=== PATIENT | female | born 1935 | race Caucasian/White ===

== ENCOUNTER 2018-03-08 14:55 | Inpatient (IN) | payer MEDICARE, BC ==
[~2018-03-08] VITALS: Ht 157.5 cm; Wt 63.5 kg
--- NOTE | 2018-03-08 15:16 | NUR ---
Dr Martinez at the bedside for MSE.
[2018-03-08 15:53] LABS: BASOPHILS # (AUTO) 0.1 K/uL (0.0-8.0); BASOPHILS % (AUTO) 0.9 % (0.0-2.0); EOSINOPHILS # (AUTO) 0.1 K/uL (0.0-0.7); EOSINOPHILS % (AUTO) 0.7 % (0.0-7.0); HEMATOCRIT 36.2 % (31.2-41.9); HEMOGLOBIN 11.6 g/dL (10.9-14.3); LYMPHOCYTES # (AUTO) 2.8 K/uL (20.0-40.0); LYMPHOCYTES % (AUTO) 22.5 % (20.5-51.5); MEAN CORPUSCULAR HEMOGLOBIN 22.3 uug (24.7-32.8); MEAN CORPUSCULAR HGB CONC 32 g/dL (32.3-35.6); MEAN CORPUSCULAR VOLUME 69.7 fL (75.5-95.3); MONOCYTES # (AUTO) 1.3 K/uL (2.0-10.0); MONOCYTES % (AUTO) 10.1 % (0.0-11.0); NEUTROPHILS # (AUTO) 8.3 K/uL (1.8-8.9); NEUTROPHILS % (AUTO) 65.8 % (38.5-71.5); PLATELET COUNT (AUTO) 451 K/uL (179-408); RED BLOOD CELL COUNT(AUTO) 5.19 MIL/uL (3.63-4.92); WHITE BLOOD COUNT (AUTO) 12.6 K/uL (3.8-11.8)
[2018-03-08 15:56] LABS: CARBON DIOXIDE 32 mmol/L (21-32); CHLORIDE 101 mmol/L (98-107); CREATININE 1.1 mg/dL (0.6-1.3); GLUCOSE 112 mg/dL (74-106); POTASSIUM 3.7 mmol/L (3.5-5.1); UREA NITROGEN, BLOOD 17 mg/dL (7-18)
[2018-03-08 16:02] LABS: ALANINE AMINOTRANSFERASE 27 U/L (14-59); ALKALINE PHOSPHATASE 133 U/L (50-136); ASPARTATE AMINOTRANSFERASE 43 U/L (15-37); BILIRUBIN,TOTAL 0.3 mg/dL (0.2-1.0); CREATINE KINASE, TOTAL 45 U/L (26-192); TOTAL PROTEIN, SERUM 7.2 g/dL (6.4-8.2)
[2018-03-08 16:15] LABS: *OCCULT BLOOD STOOL POSITIVE (NEGATIVE)
--- NOTE | 2018-03-08 16:50 | NUR ---
Patient is resting comfortably in bed with eyes closed, NAD noted.Pt's son at the bedside.
[2018-03-08] MEDS ORDERED: INDA2.5T5 PO (17:15)
[2018-03-08] MEDS ORDERED: FERR325T28 PO (17:15)
[2018-03-08] MEDS ORDERED: LORA1TAB PO (17:15)
[2018-03-08] MEDS ORDERED: NIFE30TA91 PO (17:15)
[2018-03-08] MEDS ORDERED: METO-358 PO (17:15)
--- NOTE | 2018-03-08 17:31 | NUR ---
Paged Dr Tello(GI consult) per MD request, awaiting call back.
--- NOTE | 2018-03-08 17:38 | NUR ---
Dr Humphrey spoke to MARY Broussard.
--- NOTE | 2018-03-08 17:41 | NUR ---
Belonging list completed and placed in the chart, not candidate for MRSA.
[2018-03-08 17:55] LABS: *BILIRUBIN,URIN NEGATIVE (NEGATIVE); *BLOOD, URINE NEGATIVE (NEGATIVE); *COLOR,URINE YELLOW (YELLOW); *KETONES,URINE NEGATIVE (NEGATIVE); *PROTEIN,URINE NEGATIVE (NEGATIVE); *UROBILINOGEN,URINE 0.2 E.U./dl (NORMAL); LEUKOCYTE ESTERASE ,URINE 1+ (NEGATIVE); NITRITE, URINE NEGATIVE (NEGATIVE); UGLUCOSE NEGATIVE (NEGATIVE)
[2018-03-08 18:03] LABS: *CLARITY,URINE HAZY (CLEAR)
[2018-03-08 18:04] LABS: BACTERIA,URINE FEW /HPF (NONE SEEN); MUCUS,URINE MANY /LPF (0-FEW); RBC,URINE 0-3 /HPF (0-3); SQUAMOUS EPITHELIAL CELL,UR MODERATE /HPF (NONE SEEN)
[2018-03-08 18:35] VITALS: BP 131/50
[2018-03-08 19:35] VITALS: BP 116/56
--- NOTE | 2018-03-08 19:45 | NUR ---
RECEIVED PATIENT AWAKE IN BED WITH SON AT BEDSIDE. PATIENT IS A/O X4. DENIES PAIN OR DISCOMFORT. NO RESP. DISTRESS NOTED. ORIENTED PATIENT TO ROOM AND CALL LIGHT. ON TELE SR. CALL LIGHT IN REACH. ALL NEEDS ATTENDED. WILL CONTINUE TO MONITOR AND ASSESS.
--- NOTE | 2018-03-08 20:15 | NUR ---
RECEIVED ORDER IN PATIENTS CHART REGARDING EGD/COLONOSCOPY IN AM. PATIENT STATED, SHE WAS TOLD IM ER THAT THE PREP WOULD START IN AM AND PATIENT DOES NOT WANT TO START PREP TONIGHT. NOTIFIED DR. WREN AND CALLED OUT TO [facility] WHO ORDERED PREP, TO INFORM HER THAT PATIENT DOES NOT WANT EGD/COLONOSCOPY PREP TO START TONIGHT. 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 PATIENT WILL START PREP IM AM, CLEAR LIQUIDS JESSICA ALL DAY AND THEN NPO AFTER MIGDNIGHT ON 03/10/18. EGD/COLONOSCOPY PLANNED FOR WEDNESDAY, NO TIME SCHEDULED AT THIS TIME. ALL NEEDS ATTENDED. WILL CONTINUE TO MONITOR.
[2018-03-08] MEDS ORDERED: MAGNESIUM CITRATE 296 ML BOTTLE PO ONE (20:30)
[2018-03-08] MEDS ORDERED: GOLYTELY 4000 ML BOTTLE PO ONE (20:30)
[2018-03-08] MEDS ORDERED: MORPHINE SULFATE 2 MG/1 ML DISP.SYRIN IV PRN (20:45)
[2018-03-08] MEDS ORDERED: ENALAPRILAT DIHYDRATE INJ 2.5 MG in IV NORMAL SALINE 50 ML IV PRN (20:45)
[2018-03-08] MEDS ORDERED: ACETAMINOPHEN 650 MG SUPP.RECT RC PRN (20:45)
[2018-03-08] MEDS ORDERED: LORAZEPAM 1 MG TABLET PO PRN (20:45)
[2018-03-08] MEDS ORDERED: ACETAMINOPHEN 325 MG TABLET PO PRN (20:45)
[2018-03-08] MEDS ORDERED: DOCUSATE SODIUM 250 MG CAPSULE PO SCH (21:00)
[2018-03-08] MEDS: METOPROLOL TARTRATE 25 MG TABLET PO SCH (22:04)
[2018-03-08] MEDS: CEFTRIAXONE 1 G in IV DEXTROSE 5% 50 ML IV SCH (22:10)
[2018-03-08] MEDS: DOCUSATE SODIUM 100 MG CAPSULE PO SCH (22:51)
[2018-03-09] VITALS: BP 129/46
[2018-03-09 04:00] VITALS: BP 132/45
[2018-03-09] MEDS ORDERED: FLEET ENEMA 133 ML BOTTLE RC ONE (05:00)
--- NOTE | 2018-03-09 05:57 | NUR ---
PATIENT ASLEEP IN BED. ON TELE SB 50'S. SLEPT WELL. NO S/S OF PAIN OR DISCOMFORT. NO RESP. DISTRESS NOTED. CALL LIGHT IN REACH. ALL NEEDS ATTENDED. WILL CONTINUE TO MONITOR.
[2018-03-09] MEDS: PANTOPRAZOLE SODIUM 40 MG TABLET.DR PO SCH (06:19)
[2018-03-09 06:34] LABS: BASOPHILS # (AUTO) 0.1 K/uL (0.0-8.0); EOSINOPHILS # (AUTO) 0.3 K/uL (0.0-0.7); EOSINOPHILS % (AUTO) 2.7 % (0.0-7.0); HEMOGLOBIN 10.5 g/dL (10.9-14.3); LYMPHOCYTES # (AUTO) 3.3 K/uL (20.0-40.0); LYMPHOCYTES % (AUTO) 28.1 % (20.5-51.5); MEAN CORPUSCULAR HEMOGLOBIN 22.2 uug (24.7-32.8); MEAN CORPUSCULAR HGB CONC 32 g/dL (32.3-35.6); MEAN CORPUSCULAR VOLUME 69.8 fL (75.5-95.3); MONOCYTES # (AUTO) 1.7 K/uL (2.0-10.0); NEUTROPHILS # (AUTO) 6.4 K/uL (1.8-8.9); NEUTROPHILS % (AUTO) 54.2 % (38.5-71.5); PLATELET COUNT (AUTO) 422 K/uL (179-408); RED BLOOD CELL COUNT(AUTO) 4.73 MIL/uL (3.63-4.92); WHITE BLOOD COUNT (AUTO) 11.8 K/uL (3.8-11.8)
[2018-03-09 07:01] LABS: THYROID STIMULATING HORMONE 2.353 mIU/mL (0.358-3.740)
[2018-03-09 07:05] LABS: ALANINE AMINOTRANSFERASE 23 U/L (14-59); ALKALINE PHOSPHATASE 113 U/L (50-136); ASPARTATE AMINOTRANSFERASE 44 U/L (15-37); BILIRUBIN,TOTAL 0.2 mg/dL (0.2-1.0); CARBON DIOXIDE 28 mmol/L (21-32); CHLORIDE 102 mmol/L (98-107); CHOLESTEROL 355 mg/dL (<200); CREATININE 0.8 mg/dL (0.6-1.3); GLUCOSE 110 mg/dL (74-106); HDL CHOLESTEROL 29 mg/dL (40-60); MAGNESIUM 2.1 mg/dL (1.8-2.4); PHOSPHOROUS 4.7 mg/dL (2.5-4.9); POTASSIUM 2.9 mmol/L (3.5-5.1); TOTAL PROTEIN, SERUM 6.4 g/dL (6.4-8.2); TRIGLYCERIDES 219 MG/DL (30-150); UREA NITROGEN, BLOOD 17 mg/dL (7-18)
[2018-03-09 07:17] LABS: IRON, SERUM 23 ug/dL (50-175)
[2018-03-09 07:57] LABS: EOSINOPHILS % (MANUAL) 3 % (0-8); LYMPHOCYTES % (MANUAL) 29 % (20-40); MONOCYTES % (MANUAL) 12 % (2-10); NEUTROPHILS % (MANUAL) 56 % (42-75)
[2018-03-09] MEDS ORDERED: GOLYTELY 4000 ML BOTTLE PO ONE (08:00)
--- NOTE | 2018-03-09 08:00 | NUR ---
AWAKE ALERT AND ORIENTED X3 NO SS OF PAIN OR DISTRESS. SB 52 ON MONITOR DENIES CP CONTINUE TO OBSERVE
[2018-03-09] MEDS ORDERED: POTASSIUM CHLORIDE 20 MEQ TAB.PRT.SR PO ONE (08:30)
[2018-03-09] MEDS: METOPROLOL TARTRATE 25 MG TABLET PO SCH (08:34)
--- NOTE | 2018-03-09 11:30 | NUR ---
SEEN BY DR BROWN MADE AWARE OF PT POORLY TOLERATING GOLYTELY NEW ORDERS GIVEN
[2018-03-09 11:36] VITALS: BP 123/47
[2018-03-09] MEDS ORDERED: SWABABLE VALVE TRANSFER SET EA MC ONE (11:52)
[2018-03-09] MEDS ORDERED: NORMAL SALINE FLUSH 10 ML DISP.SYRIN ONE (11:52)
[2018-03-09] MEDS ORDERED: IOHEXOL 300MG/ML 100 ML INFUS..BTL ONE (11:52)
[2018-03-09] MEDS ORDERED: IV NORMAL SALINE 100 ML ONE (11:52)
[2018-03-09] MEDS ORDERED: MAGNESIUM CITRATE 296 ML BOTTLE PO ONE ×2 (12:00→21:00)
[2018-03-09] MEDS ORDERED: MIRALAX 17 GM POWD.PACK PO ONE ×2 (12:00→16:00)
--- NOTE | 2018-03-09 12:30 | NUR ---
REFUSING CT ABD DR MCNEIL NOTIFIED AND SPOKE WITH PATIENT. PATIENT AGREED CT ABD POST EGD/COLONOSCOPY IN AM
--- NOTE | 2018-03-09 13:25 | NUR ---
CONTINUE BOWEL PREP FOR EGD AND COLONOSCOPY IN AM AT 0700, TOLERATING FAIRLY
[2018-03-09 15:14] VITALS: BP 149/49
--- NOTE | 2018-03-09 17:45 | NUR ---
FAIRLY TOLERATING BOWEL PREP STILL NOT CLEAR ENOUGH. NPO POST MN ADVISED
--- NOTE | 2018-03-09 19:20 | NUR ---
RECEIVED PT AWAKE, ALERT, ORIENTEDX3 . PT IV INTACT AND PATENT.PT ON BOWEL PREPARATION FOR PROCEDURE TOMORROW FOR EGD AND COLONOSCOPY. PT AWARE . SHE SAID SHE HAS STOMACH PAIN BECAUSE OF THE BOWEL PREPARATION. SHE SAID SHE DOESN'T WANT TO CONTINUE THE BOWEL PREP. SHE NEEDS ENCOURAGEMENT TO DRINK HER BOWEL PREP MEDICATION. BED ALARM ON, CALL LIGHT WITHIN REACH, AND SIDE [id number]. SAFETY AND COMFORT PROVIDED. WILL CONTINUE TO MONITOR.
[2018-03-09 20:00] VITALS: BP 146/49
[2018-03-09] MEDS: DOCUSATE SODIUM 100 MG CAPSULE PO SCH (20:39)
[2018-03-09] MEDS: CEFTRIAXONE 1 G in IV DEXTROSE 5% 50 ML IV SCH (20:39)
--- NOTE | 2018-03-09 21:00 | NUR ---
NOTIFY DR. MCNEIL THAT PT IS REFUSING TO TAKE MORE BOWEL PREPARATION AT 2020. DR ADVISED TO TELL THE GI DOCTOR. THE PT'S DAUGHTER CALLED AND TOLD ME TO LET HER MOTHER KEEP DRINKING THE BOWEL PREP. PT HESITANT TO CONTINUE TO TAKE THE BOWEL PREPARATION BUT SHE IS DRINKING IT.
--- NOTE | 2018-03-09 22:00 | NUR ---
GRANDSON AT BEDSIDE AND ALSO ENCOURAGING HER GRANDMOTHER TO FINISH TAKING HER BOWEL PREPARATION. WILL CONTINUE TO MONITOR.
[2018-03-10] MEDS: POTASSIUM CHLORIDE 40 MEQ in IV NS 1000 ML 1,000 ML IV PRN ×2 (00:11→23:56)
[2018-03-10 04:46] VITALS: BP 133/66
[2018-03-10] MEDS ORDERED: FLEET ENEMA 133 ML BOTTLE RC PRN (05:00)
[2018-03-10] MEDS ORDERED: FLEET ENEMA 133 ML BOTTLE RC ONE (06:00)
[2018-03-10] MEDS: PANTOPRAZOLE SODIUM 40 MG TABLET.DR PO SCH (06:04)
--- NOTE | 2018-03-10 06:24 | NUR ---
PT SLEPT INTERMITTENTLY. IV INTACT AND PATENT.BOWEL PREPRARATION DONE. PT TOLERATED IT WELL. PREOP CHECKLIST DONE. SAFETY AND COMFORT PROVIDED. ALL NEEDS ARE MET.WILL ENDORSE TO DAYSHIFT NURSE.
--- NOTE | 2018-03-10 06:45 | NUR ---
PT WAS TAKEN DOWN FOR THE PROCEDURE.
--- NOTE | 2018-03-10 07:07 | NUR ---
patient in gi for egd and colonoscopy
[2018-03-10] MEDS ORDERED: SUCCINYLCHOLINE CHLORIDE 200 MG/10 ML VIAL ONE (07:15)
[2018-03-10 07:56] LABS: BASOPHILS # (AUTO) 0.1 K/uL (0.0-8.0); BASOPHILS % (AUTO) 0.7 % (0.0-2.0); EOSINOPHILS # (AUTO) 0.1 K/uL (0.0-0.7); EOSINOPHILS % (AUTO) 0.7 % (0.0-7.0); HEMATOCRIT 33.3 % (31.2-41.9); HEMOGLOBIN 10.6 g/dL (10.9-14.3); LYMPHOCYTES # (AUTO) 1.9 K/uL (20.0-40.0); LYMPHOCYTES % (AUTO) 21.4 % (20.5-51.5); MEAN CORPUSCULAR HEMOGLOBIN 22.5 uug (24.7-32.8); MEAN CORPUSCULAR HGB CONC 32 g/dL (32.3-35.6); MEAN CORPUSCULAR VOLUME 70.4 fL (75.5-95.3); MONOCYTES # (AUTO) 1.2 K/uL (2.0-10.0); MONOCYTES % (AUTO) 13.2 % (0.0-11.0); NEUTROPHILS # (AUTO) 5.6 K/uL (1.8-8.9); PLATELET COUNT (AUTO) 379 K/uL (179-408); RED BLOOD CELL COUNT(AUTO) 4.73 MIL/uL (3.63-4.92)
[2018-03-10 08:15] LABS: WHITE BLOOD COUNT (AUTO) 8.7 K/uL (3.8-11.8)
[2018-03-10] MEDS ORDERED: SWABABLE VALVE TRANSFER SET EA MC ONE (08:39)
[2018-03-10] MEDS ORDERED: IOHEXOL 300MG/ML 100 ML INFUS..BTL ONE (08:40)
[2018-03-10] MEDS ORDERED: IV NORMAL SALINE 100 ML ONE (08:40)
[2018-03-10 09:27] LABS: CARBON DIOXIDE 29 mmol/L (21-32); CHLORIDE 107 mmol/L (98-107); CREATININE 0.8 mg/dL (0.6-1.3); GLUCOSE 132 mg/dL (74-106); MAGNESIUM 2.7 mg/dL (1.8-2.4); PHOSPHOROUS 3.9 mg/dL (2.5-4.9); POTASSIUM 3.4 mmol/L (3.5-5.1); UREA NITROGEN, BLOOD 18 mg/dL (7-18)
--- NOTE | 2018-03-10 09:30 | NUR ---
BACK FROM GI LAB POST EGD/COLONOSCOPY AND ALSO CT ABDOMEN/PELVIS. AWAKE ALERT AND NO SS OF PAIN OR DISTRESS. CONTINUE CLEAR LIQUID TILL FURTHER ORDERS
[2018-03-10 10:29] LABS: BAND % (MANUAL) 1 % (0-10); BASOPHILS % (MANUAL) 1 % (0-2); EOSINOPHILS % (MANUAL) 1 % (0-8); LYMPHOCYTES % (MANUAL) 23 % (20-40); METAMYELOCYTES % 1 % (0-1); MONOCYTES % (MANUAL) 10 % (2-10); NEUTROPHILS % (MANUAL) 63 % (42-75)
[2018-03-10 11:55] VITALS: BP 136/58
[2018-03-10] MEDS ORDERED: POTASSIUM CHLORIDE 20 MEQ TAB.PRT.SR PO ONE (12:15)
--- NOTE | 2018-03-10 15:27 | NUR ---
DC PLANNING INITIATED SEE SAMPLING EXPERT AND AND DR MCNEIL
[2018-03-10 16:28] VITALS: BP 144/60
[2018-03-10] MEDS: SOD FERRIC GLUC COMPLX/SUCROSE 125 MG in IV NORMAL SALINE 100 ML IV SCH (16:38)
--- NOTE | 2018-03-10 20:00 | NUR ---
NSG: Received patient laying in bed. family at bed side. no c/o pain or discomfort.
[2018-03-10 20:24] VITALS: BP 147/91
[2018-03-10] MEDS: DOCUSATE SODIUM 100 MG CAPSULE PO SCH (20:32)
[2018-03-10] MEDS: CEFTRIAXONE 1 G in IV DEXTROSE 5% 50 ML IV SCH (20:42)
--- NOTE | 2018-03-10 21:00 | NUR ---
nsg: patient reported small amount blood in urine.
--- NOTE | 2018-03-11 04:56 | NUR ---
NSG: PATIENT REFUSED IVF,STATED I FEEL PAIN WNEN IVF IS RUNNING. CHARGE NURSE AWARE. CONTINUE MONITORING FOR SAFETY.
[2018-03-11 05:04] VITALS: BP 152/50
--- NOTE | 2018-03-11 05:52 | NUR ---
NSG: PATIENT REFUSED AM LAB.
[2018-03-11] MEDS: PANTOPRAZOLE SODIUM 40 MG TABLET.DR PO SCH (06:08)
--- NOTE | 2018-03-11 08:00 | NUR ---
AWAKE ALERT WITH NO SIGNS OF PAIN OR DISTRESS. NOTED SLIGHT BRIGHT RED FROM STOOL WILL OBSERVE
[2018-03-11 11:34] VITALS: BP 155/66
[2018-03-11 11:47] LABS: BASOPHILS # (AUTO) 0.1 K/uL (0.0-8.0); BASOPHILS % (AUTO) 0.8 % (0.0-2.0); EOSINOPHILS # (AUTO) 0.3 K/uL (0.0-0.7); EOSINOPHILS % (AUTO) 2.5 % (0.0-7.0); HEMATOCRIT 33.9 % (31.2-41.9); HEMOGLOBIN 11.1 g/dL (10.9-14.3); LYMPHOCYTES # (AUTO) 2.4 K/uL (20.0-40.0); LYMPHOCYTES % (AUTO) 22.9 % (20.5-51.5); MEAN CORPUSCULAR HEMOGLOBIN 22.8 uug (24.7-32.8); MEAN CORPUSCULAR HGB CONC 33 g/dL (32.3-35.6); MEAN CORPUSCULAR VOLUME 69.8 fL (75.5-95.3); MONOCYTES # (AUTO) 1.1 K/uL (2.0-10.0); MONOCYTES % (AUTO) 10.3 % (0.0-11.0); NEUTROPHILS # (AUTO) 6.7 K/uL (1.8-8.9); NEUTROPHILS % (AUTO) 63.5 % (38.5-71.5); PLATELET COUNT (AUTO) 382 K/uL (179-408); RED BLOOD CELL COUNT(AUTO) 4.86 MIL/uL (3.63-4.92); WHITE BLOOD COUNT (AUTO) 10.5 K/uL (3.8-11.8)
--- NOTE | 2018-03-11 12:00 | NUR ---
CONTINUE CURRENT TX PLAN. FAMILY AT BEDSIDE ALL SUPPORTIVE WITH CARE
[2018-03-11] MEDS ORDERED: POTASSIUM CHLORIDE 20 MEQ TAB.PRT.SR PO ONE (12:30)
[2018-03-11 13:12] LABS: BAND % (MANUAL) 2 % (0-10); BASOPHILS % (MANUAL) 1 % (0-2); EOSINOPHILS % (MANUAL) 5 % (0-8); LYMPHOCYTES % (MANUAL) 19 % (20-40); MONOCYTES % (MANUAL) 7 % (2-10); NEUTROPHILS % (MANUAL) 66 % (42-75)
[2018-03-11] MEDS ORDERED: SOD FERRIC GLUC COMPLX/SUCROSE 125 MG in IV NORMAL SALINE 100 ML IV SCH (14:00)
[2018-03-11] MEDS: SOD FERRIC GLUC COMPLX/SUCROSE 125 MG in IV NORMAL SALINE 100 ML IV SCH (14:41)
--- NOTE | 2018-03-11 15:31 | NUR ---
SEEN BY DR MCNEIL DISCUSSED PLAN OF CARE SEE NOTES
[2018-03-11 16:00] VITALS: BP 157/53
[2018-03-11] MEDS ORDERED: LORAZEPAM 0.5 MG TABLET PO PRN (17:15)
--- NOTE | 2018-03-11 19:30 | NUR ---
Received patient sitting comfortably in chair. Family at bedside. No acute distress noted. Patient is A/O x 4. Ambulatory with minimal assistance. No skin issues. Safety initiated. Call light within reach. Room is kept clutter free. Bed is in low and locked position. Will continue to monitor.
[2018-03-11 20:26] VITALS: BP 162/62
[2018-03-11] MEDS: DOCUSATE SODIUM 100 MG CAPSULE PO SCH (21:00)
[2018-03-11] MEDS: CEFTRIAXONE 1 G in IV DEXTROSE 5% 50 ML IV SCH (22:00)
[2018-03-11] MEDS ORDERED: hydrALAZINE HCL 25 MG TABLET PO PRN (23:00)
[2018-03-12 05:35] VITALS: BP 155/47
[2018-03-12] MEDS: PANTOPRAZOLE SODIUM 40 MG TABLET.DR PO SCH (06:00)
--- NOTE | 2018-03-12 06:23 | NUR ---
No changes t/o shift. Patient slept t/o shift. No acute distress noted. No c/o pain or sob. Safety and comfort measures maintained t/o shift. B/P elevated, PRN medication given, will re-check BP. All meds given without reaction. All needs met.
[2018-03-12] MEDS: METOPROLOL TARTRATE 25 MG TABLET PO SCH ×2 (08:08→21:09)
--- NOTE | 2018-03-12 10:00 | NUR ---
UP AMBULATORY TO AND FROM THE BATHROOM DENIES PAIN OR DISCOMFORTS AT THIS TIME NOT IN DISTRESS.
[2018-03-12 11:47] VITALS: BP 136/54
[2018-03-12] MEDS: SOD FERRIC GLUC COMPLX/SUCROSE 125 MG in IV NORMAL SALINE 100 ML IV SCH (14:09)
[2018-03-12 16:15] VITALS: BP 130/0
--- NOTE | 2018-03-12 17:09 | NUR ---
PATIENT COMPLAINED OF VAGINAL ITCHING DR MCNEIL NOTIFIED WITH NEW ORDERS AND NOTED.
[2018-03-12] MEDS: FLUCONAZOLE 100 MG TABLET PO SCH (17:27)
--- NOTE | 2018-03-12 17:33 | NUR ---
PATIENT STATED AND EDUCATED ON DIFLUCAN ORDERED AND PERICARE GIVEN AND WILL CONTINUE TO OBSERVE.
[2018-03-12 20:07] VITALS: BP 155/68
[2018-03-12] MEDS: DOCUSATE SODIUM 100 MG CAPSULE PO SCH (21:00)
[2018-03-12] MEDS: CEFTRIAXONE 1 G in IV DEXTROSE 5% 50 ML IV SCH (21:08)
[2018-03-13 04:00] VITALS: BP 132/43
--- NOTE | 2018-03-13 05:41 | NUR ---
No changes t/o shift. Patient slept t/o shift. No acute distress noted. No c/o pain or sob. Safety and comfort measures maintained t/o shift. Vitals signs stable. Urinating ok. All meds given without reaction. All needs met.
[2018-03-13] MEDS: PANTOPRAZOLE SODIUM 40 MG TABLET.DR PO SCH (06:08)
[2018-03-13] MEDS: METOPROLOL TARTRATE 25 MG TABLET PO SCH (08:10)
[2018-03-13] MEDS: FLUCONAZOLE 100 MG TABLET PO SCH (08:10)
[2018-03-13 11:15] VITALS: BP 132/47
--- NOTE | 2018-03-13 11:40 | NUR ---
ORDER TO DISCHARGE PATIENT HOME TODAY RECEIVED AND CARRIED OUT.PATIENT STATED THAT HER DAUGHTER CHAZ WILL BE HERE TO PICK HER UP.
[2018-03-13] MEDS ORDERED: LORA0.5T48 PO (12:08)
[2018-03-13] MEDS ORDERED: HYDR-3326 PO (12:08)
[2018-03-13] MEDS ORDERED: PANT40TA2 PO (12:08)
[2018-03-13] MEDS ORDERED: DOCU-141 PO (12:08)
[2018-03-13] MEDS ORDERED: METO-357 PO (12:08)
[2018-03-13] MEDS ORDERED: POLY17PO4 PO (12:08)
--- NOTE | 2018-03-13 14:30 | NUR ---
PATIENT DISCHARGED PICKED UP BY HER DAUGHTER CHAZ IN SATISFACTORY CONDITION WITH DISCHARGE INSTRUCTIONS,PRESCRIPTIONS AND ALL HER PERSONAL BELONGINGS FROM THE [facility] PATIENT ALSO RECEIVED CD OF ALL HER TESTS HOME HEALTH INFO ETC AND TO FOLLOW UP WITH HER PRIMARY DOCTOR.PATIENT STATED DID NOT HAVE A PRIVATE DOCTOR BUT WILL FIND ONE WHILE IN [place] .ALSO NEEDED TO FOLLOW UP WITH DR METZGER PATIENT AND HE DAUGHTER CHAZ EXPRESSED UNDERSTANDING.
== END 2018-03-13 14:30 | disposition home health service (06) | DRG 375 ==
LOC: ER 14:58 → TELE 18:13 → MED 03-09 13:27
PROVIDERS: ADMIT Psychiatry & Neurology Psychiatry; ATTEND Internal Medicine
PROC: 0DBH8ZX Excision of Cecum, Via Natural or Artificial Opening Endoscopic, Diagnostic (ICD-10-PCS; 2018-03-10)
PROC: 0DBL8ZX Excision of Transverse Colon, Via Natural or Artificial Opening Endoscopic, Diagnostic (ICD-10-PCS; 2018-03-10)
PROC: 0DB68ZX Excision of Stomach, Via Natural or Artificial Opening Endoscopic, Diagnostic (ICD-10-PCS; principal; 2018-03-10 07:00)
PROC: 0DBK8ZX Excision of Ascending Colon, Via Natural or Artificial Opening Endoscopic, Diagnostic (ICD-10-PCS; 2018-03-10 07:00)
DX: C18.4 Malignant neoplasm of transverse colon (principal); C78.7 Secondary malignant neoplasm of liver and intrahepatic bile duct; I11.9 Hypertensive heart disease without heart failure; D62 Acute posthemorrhagic anemia; N39.0 Urinary tract infection, site not specified; E44.1 Mild protein-calorie malnutrition; J98.11 Atelectasis; G47.00 Insomnia, unspecified; I08.3 Combined rheumatic disorders of mitral, aortic and tricuspid valves; K29.70 Gastritis, unspecified, without bleeding; K57.10 Diverticulosis of small intestine without perforation or abscess without bleeding; E78.4 Other hyperlipidemia; G25.0 Essential tremor; K64.8 Other hemorrhoids; Z87.891 Personal history of nicotine dependence; Z88.2 Allergy status to sulfonamides; I25.10 Atherosclerotic heart disease of native coronary artery without angina pectoris; M51.34 Other intervertebral disc degeneration, thoracic region; M51.36 Other intervertebral disc degeneration, lumbar region; Z87.42 Personal history of other diseases of the female genital tract; Z79.899 Other long term (current) drug therapy; Z68.25 Body mass index [BMI] 25.0-25.9, adult; D12.0 Benign neoplasm of cecum; D12.2 Benign neoplasm of ascending colon; F41.9 Anxiety disorder, unspecified; K21.9 Gastro-esophageal reflux disease without esophagitis; I70.0 Atherosclerosis of aorta; N76.0 Acute vaginitis
CPT/HCPCS: 36415; 70030-TC; 71045; 71260; 82378; 83550; 83735; 84100; 84443; 85025; 85610; 85651; 86140; 88342; 93005; 93307; A4217; A4663; J0330; J0696; J2916; J3480; J3490; J7030; J7050; J7060; Q9967

== ENCOUNTER 2018-04-24 09:52 | Emergency (ER) | payer MEDICARE, BC ==
[~2018-04-24] VITALS: Ht 154.9 cm; Wt 59.9 kg
[~2018-04-24 09:52] MED LIST: DOCU-141 PO; FERR325T28 PO; HYDR-3326 PO; INDA2.5T5 PO; LORA0.5T48 PO; LORA1TAB PO; METO-357 PO; NIFE30TA91 PO; PANT40TA2 PO; POLY17PO4 PO
--- NOTE | 2018-04-24 10:05 | NUR ---
PATIENT TAKEN INTO ROOM. PATIENT WILL COMPLAINING OF BLOOD IN STOOLS.
[2018-04-24] MEDS ORDERED: ONDA4TAB8 SL (10:19)
[2018-04-24 10:51] LABS: BASOPHILS # (AUTO) 0.1 K/uL (0.0-8.0); BASOPHILS % (AUTO) 0.8 % (0.0-2.0); EOSINOPHILS # (AUTO) 0.3 K/uL (0.0-0.7); EOSINOPHILS % (AUTO) 4.1 % (0.0-7.0); HEMATOCRIT 35.5 % (31.2-41.9); HEMOGLOBIN 11.3 g/dL (10.9-14.3); LYMPHOCYTES # (AUTO) 1.5 K/uL (20.0-40.0); LYMPHOCYTES % (AUTO) 23.2 % (20.5-51.5); MEAN CORPUSCULAR HEMOGLOBIN 23.1 uug (24.7-32.8); MEAN CORPUSCULAR HGB CONC 32 g/dL (32.3-35.6); MEAN CORPUSCULAR VOLUME 72.7 fL (75.5-95.3); MONOCYTES # (AUTO) 0.1 K/uL (2.0-10.0); MONOCYTES % (AUTO) 2.2 % (0.0-11.0); NEUTROPHILS # (AUTO) 4.6 K/uL (1.8-8.9); NEUTROPHILS % (AUTO) 69.7 % (38.5-71.5); PLATELET COUNT (AUTO) 264 K/uL (179-408); RED BLOOD CELL COUNT(AUTO) 4.89 MIL/uL (3.63-4.92); WHITE BLOOD COUNT (AUTO) 6.6 K/uL (3.8-11.8)
[2018-04-24] MEDS ORDERED: ACETAMINOPHEN ES 500 MG TABLET ONE (10:57)
[2018-04-24 10:59] LABS: CARBON DIOXIDE 29 mmol/L (21-32); CHLORIDE 104 mmol/L (98-107); CREATININE 0.8 mg/dL (0.6-1.3); GLUCOSE 99 mg/dL (74-106); UREA NITROGEN, BLOOD 17 mg/dL (7-18)
[2018-04-24] MEDS ORDERED: ACETAMINOPHEN ES 500 MG TABLET PO ONE (11:00)
[2018-04-24 11:04] LABS: ALANINE AMINOTRANSFERASE 31 U/L (14-59); ALKALINE PHOSPHATASE 137 U/L (50-136); ASPARTATE AMINOTRANSFERASE 38 U/L (15-37); BILIRUBIN,DIRECT 0.1 mg/dL (0.0-0.2); BILIRUBIN,TOTAL 0.5 mg/dL (0.2-1.0); TOTAL PROTEIN, SERUM 6.2 g/dL (6.4-8.2)
[2018-04-24 11:42] LABS: EOSINOPHILS % (MANUAL) 4 % (0-8); LYMPHOCYTES % (MANUAL) 23 % (20-40); MONOCYTES % (MANUAL) 3 % (2-10); NEUTROPHILS % (MANUAL) 70 % (42-75)
[2018-04-24 13:05] VITALS: BP 142/60
== END 2018-04-24 13:11 | disposition home or self-care (01) ==
LOC: ER 09:52
DX: K92.2 Gastrointestinal hemorrhage, unspecified (principal); C18.9 Malignant neoplasm of colon, unspecified; I10 Essential (primary) hypertension; I48.91 Unspecified atrial fibrillation; K21.9 Gastro-esophageal reflux disease without esophagitis; I51.7 Cardiomegaly; Z88.2 Allergy status to sulfonamides; Z91.040 Latex allergy status; Z79.891 Long term (current) use of opiate analgesic; Z79.899 Other long term (current) drug therapy
CPT/HCPCS: 36415; 70030-TC; 71045; 85025; 85730; 86850; 86870; 86900; 86901; 93005; A4663; A9150; J7030